=== PATIENT | female | born 1945 | race Two or more races ===

== ENCOUNTER 2024-05-12 16:40 | Emergency (ER) | payer MEDICAID ==
[~2024-05-12] VITALS: Ht 160 cm; Wt 129.0 kg
[~2024-05-12 16:40] MED LIST: ALBU18HF2 IH; ALPR-394 PO; CARV25TA47 PO; CLOP-31 PO; EMPA25TA PO; ERGO1250 PO; GLIM2TAB30 PO; LOSA-413 PO
[2024-05-12 16:47] VITALS: O2SAT 96
[2024-05-12] MEDS: HYDROCODONE/ACETAMINOPHEN 5/325MG TABLET PO ONE (17:49)
[2024-05-12] MEDS ORDERED: TOPUD MT (18:52)
[2024-05-12 19:03] VITALS: BP 136/81; PULSE 78; RESP 16; TEMP 98.7
== END 2024-05-12 19:04 | disposition home or self-care (01) ==
LOC: ER 16:40
DX: S63.591A Other specified sprain of right wrist, initial encounter (principal); S83.8X1A Sprain of other specified parts of right knee, initial encounter; S80.211A Abrasion, right knee, initial encounter; E11.9 Type 2 diabetes mellitus without complications; I10 Essential (primary) hypertension; Z98.890 Other specified postprocedural states; Z88.0 Allergy status to penicillin; Z88.8 Allergy status to other drugs, medicaments and biological substances; W01.0XXA Fall on same level from slipping, tripping and stumbling without subsequent striking against object, initial encounter; Y93.89 Activity, other specified; Y92.89 Other specified places as the place of occurrence of the external cause; Y99.8 Other external cause status
CPT/HCPCS: 73090; 73110; 73130; 73560; 99284; A4565